=== PATIENT | female | born 1985 | race Hispanic/Latino ===

== ENCOUNTER 2017-10-22 10:18 | Emergency (ER) | payer OTHER ==
[2017-10-22 10:41] VITALS: BP 131/96; PULSE 98; RESP 16; TEMP 97; O2SAT 99
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
[2017-10-22] MEDS ORDERED: Amoxicillin-Clav 875-125 mg Tab PO STA (13:09)
[2017-10-22] MEDS ORDERED: Amoxicillin-Clav 875-125 mg Tab PO ONE (13:14)
== END 2017-10-22 13:58 | disposition home or self-care (01) ==
LOC: H.ER 10:18
DX: S00.03XA Contusion of scalp, initial encounter (principal); S02.2XXA Fracture of nasal bones, initial encounter for closed fracture; V43.52XA Car driver injured in collision with other type car in traffic accident, initial encounter; Y92.410 Unspecified street and highway as the place of occurrence of the external cause; F32.9 Major depressive disorder, single episode, unspecified